=== PATIENT | male | born 1965 | race Caucasian/White ===

== ENCOUNTER 2021-06-09 17:19 | Observation (INO) ==
[2021-06-10] MEDS ORDERED: Metoclopramide 10 MG/2 ML VIAL ONE (00:35)
[2021-06-10] MEDS ORDERED: Famotidine 20 MG/2 ML VIAL ONE (00:35)
[2021-06-10] MEDS ORDERED: Lidocaine -MPF 2% 2 ML VIAL ONE (00:39)
[2021-06-10] MEDS ORDERED: *HR* Propofol 200 MG/20 ML VIAL IVP ONE (00:39)
[2021-06-10 00:51] VITALS: O2SAT 96
[2021-06-10 01:27] VITALS: BP 119/76; PULSE 77; TEMP 98.4
== END 2021-06-10 07:00 | disposition home or self-care (01) ==
LOC: 3BNU 17:19 → EMEROOARM 17:19 → 3BNU 06-10 00:33
PROVIDERS: ADMIT Surgery; ATTEND Surgery